=== PATIENT | female | born 1980 | race American Indian/Alaskan Native ===

== ENCOUNTER 2019-03-27 07:40 | Day surgery (SDC) | payer BC, MEDICAID ==
[~2019-03-27 07:40] MED LIST: BUPIVACAINE-EPINEPHRINE/PF 0.5%-1:200,000 (30 ML) VIAL INFILTRATI ONE
[2019-03-27] MEDS ORDERED: LACTATED RINGERS 1,000 ML IV SCH (08:02)
[2019-03-27] MEDS ORDERED: LACTATED RINGERS 1,000 ML ONE (08:06)
[2019-03-27] MEDS ORDERED: HYDROmorphone 1 MG/1 ML INJ IV PRN (08:07)
[2019-03-27] MEDS ORDERED: fentaNYL 100 MCG/2 ML INJ IV PRN (08:07)
[2019-03-27] MEDS ORDERED: ONDANSETRON 4 MG/2 ML INJ IV PRN (08:07)
--- NOTE | 2019-03-27 08:07 | Anesthesia Day of Surgery ---
Anesthesia Day of Surgery - Day of Surgery Patient Examined: Yes Patient H&P Reviewed: Yes Patient is NPO: Yes
--- NOTE | 2019-03-27 08:12 | Anesthesia Consultation ---
Anesthesia Consult and Med Hx Date of service: 03/27/19 - Airway Anesthetic Teeth Evaluation: Chipped ROM Head & Neck: Inadequate (Decreased extension) Mental/Hyoid Distance: Adequate Mallampati Class: Class III Intubation Access Assessment: Possibly Difficult - Pre-Operative Health Status ASA Pre-Surgery Classification: ASA3 Proposed Anesthetic Plan: General - Pulmonary Hx Smoking: No Hx Sleep Apnea: Yes (TESTED VERY MILD) - Cardiovascular System Hx Hypertension: Yes Hx Heart Attack/AMI: No - Central Nervous System Hx Neuromuscular Disorder: Yes (Migraines) Hx Seizures: No Hx Psychiatric Problems: Yes (Major Depressive Disorder) - Endocrine Hx Hypothyroidism: No - Hematic Hx Anemia: Yes Hx Sickle Cell Disease: No - Other Systems Hx Alcohol Use: Yes (OCC.) Hx Substance Use: No Hx Cancer: No
[2019-03-27] MEDS ORDERED: ACETAMINOPHEN 325 MG TAB PO NR (08:14)
[2019-03-27] MEDS ORDERED: GABAPENTIN 300 MG CAP ONE (08:37)
[2019-03-27] MEDS ORDERED: CELECOXIB 200 MG CAP PO NR (09:00)
[2019-03-27] MEDS ORDERED: GABAPENTIN 300 MG CAP PO NR (09:00)
[2019-03-27] MEDS ORDERED: MIDAZOLAM 2 MG/2 ML INJ IV NR (09:00)
[2019-03-27] MEDS ORDERED: BUPIVACAINE-EPINEPHRINE/PF 0.5%-1:200,000 (30 ML) VIAL INFILTRATI ONE ×2 (09:02→10:15)
[2019-03-27] MEDS ORDERED: ROCURONIUM 50 MG/5 ML INJ IV ONE (09:11)
[2019-03-27] MEDS ORDERED: HYDROmorphone 1 MG/1 ML INJ ONE (09:11)
[2019-03-27] MEDS ORDERED: LIDOCAINE MPF (2%) 20 MG/1 ML VIAL 5 ML ONE (09:11)
[2019-03-27] MEDS ORDERED: PROPOFOL 200 MG/20 ML VIAL IV ONE (09:11)
[2019-03-27] MEDS ORDERED: GLYCOPYRROLATE 0.4 MG/2 ML INJ ONE (10:29)
[2019-03-27] MEDS ORDERED: ONDANSETRON 4 MG/2 ML INJ ONE (10:29)
[2019-03-27] MEDS ORDERED: NEOSTIGMINE 10MG/10 ML INJ MDV ONE (10:29)
--- NOTE | 2019-03-27 10:30 | Discharge Summary ---
Short Stay Discharge Plan Activity: up only with assistance, other (observe x 4 hrs then october d/c if stable. sips of cl liq today. advance to solid diet at home in am as miryam. keep dressings dry x 5 days. no lifting over 5 lbs x 1 wk) Diet: other Wound: keep clean and dry Additional Instructions: aleve I po q 6-8 hrs prn for breakthrough pain Follow up with: LAILA VILLELA MD [Staff Physician] - 04/02/19
--- NOTE | 2019-03-27 11:06 | Operative Report ---
PREOPERATIVE DIAGNOSES: 1. Lower abdominal pain, status post multiple surgeries, rule out adhesions. 2. Rule out incisional/ventral hernia. PROCEDURES: 1. Diagnostic laparoscopy. 2. Lysis of extensive and thickened omental adhesions. SURGEON: Valente Martin MD PORTABLE TRACK LINE MARKER: Dr. Betancourt. ANESTHESIA: General. ESTIMATED BLOOD LOSS: Minimal. DRAINS: None. COMPLICATIONS: None. DESCRIPTION OF PROCEDURE: The patient was taken to the operating room, prepped and draped in usual sterile fashion. Veress needle was inserted and CO2 insufflation begun. A 5 mm trocar was then inserted and camera inserted. Inspection of the abdomen revealed thickened omental adhesions inferior to the umbilicus and the area of the patient's abdominal pain. Fortunately, no incisional or ventral hernias were noted. There is a small area of rectus diastasis, which was not tender on physical exam and thus we had discussed with the patient that if only rectal diastasis was noted, we would not make an open incision and repair for that which she agreed. Two lateral 5 mm ports were then inserted. The Harmonic scalpel was then used to slowly lysed and free up all the thickened omental adhesions that were adhered to the undersurface of the peritoneum. A pre and post-adhesion lysis pictures were taken. The omentum was then carefully inspected for any oozing or bleeding, none was noted. Once again, the abdominal wall was inspected and no hernias seen. No other gross pathology noted. The lateral 5 mm ports were then removed under direct visualization. No bleeding or oozing seen. The final 5 mm port was used to expel the CO2 and the trocar removed. The skin at all port sites was closed with subcuticular 4-0 Vicryl. A 0.5% Marcaine was infiltrated over the areas for postoperative pain relief. The patient tolerated the procedure well and left the OR in stable condition. JOB# [id number] SPARKLE/TED
[2019-03-27 11:39] VITALS: BP 120/71
--- NOTE | 2019-03-27 13:58 | Post Anesthesia Evaluation ---
- Post Anesthesia Evaluation Patient Participated: Yes Airway Patent: Yes Stable Respiratory Function: Yes Nausea/Vomiting: No Temp > 96.8F: Yes Pain Manageable: Yes Adequeate Hydration: Yes Anesthesia Complications: No
== END 2019-03-27 07:41 | disposition home or self-care (01) ==
LOC: OR 07:40
PROVIDERS: ATTEND Surgery
DX: R10.30 Lower abdominal pain, unspecified (principal); G43.909 Migraine, unspecified, not intractable, without status migrainosus; I10 Essential (primary) hypertension; G47.30 Sleep apnea, unspecified; M19.90 Unspecified osteoarthritis, unspecified site; F41.9 Anxiety disorder, unspecified; F32.9 Major depressive disorder, single episode, unspecified; Z72.89 Other problems related to lifestyle; Z98.890 Other specified postprocedural states; Z79.899 Other long term (current) drug therapy; Z96.643 Presence of artificial hip joint, bilateral; Z98.891 History of uterine scar from previous surgery; Z86.2 Personal history of diseases of the blood and blood-forming organs and certain disorders involving the immune mechanism
CPT/HCPCS: 49320; 81025; J1170; J2405; J2704; J2710; J7120

== ENCOUNTER 2019-04-13 07:32 | Inpatient (IN) | payer BC, MEDICAID ==
[2019-04-13] MEDS ORDERED: ONDANSETRON 4 MG/2 ML INJ IV PRN ×2 (08:09→11:17)
[2019-04-13] MEDS ORDERED: fentaNYL 100 MCG/2 ML INJ IV PRN (08:09)
[2019-04-13] MEDS ORDERED: ACETAMINOPHEN 500 MG TAB PO NR (08:10)
[2019-04-13] MEDS ORDERED: MORPHINE 2 MG/1 ML INJ IV NR (08:10)
--- NOTE | 2019-04-13 08:11 | Anesthesia Day of Surgery ---
Anesthesia Day of Surgery - Day of Surgery Patient Examined: Yes Patient H&P Reviewed: Yes Patient is NPO: Yes
[2019-04-13] MEDS ORDERED: BACTERIOSTATIC SODIUM CHLORIDE 0.9% 30 ML VIAL INFILTRATI ONE (08:15)
--- NOTE | 2019-04-13 08:15 | Anesthesia Consultation ---
Anesthesia Consult and Med Hx Date of service: 04/13/19 - Airway Anesthetic Teeth Evaluation: Chipped ROM Head & Neck: Adequate Mental/Hyoid Distance: Adequate Mallampati Class: Class II Intubation Access Assessment: Probably Good - Pre-Operative Health Status ASA Pre-Surgery Classification: ASA3 Proposed Anesthetic Plan: General - Pulmonary Hx Smoking: No Hx Sleep Apnea: Yes (TESTED VERY MILD) - Cardiovascular System Hx Hypertension: Yes (SINCE 2006) Hx Heart Attack/AMI: No - Central Nervous System Hx Neuromuscular Disorder: Yes (Migraines) Hx Seizures: No Hx Back Pain: Yes (NECK AND TOTAL BACK) Hx Psychiatric Problems: Yes - Endocrine Hx Hypothyroidism: No - Hematic Hx Anemia: Yes (LAST HGB 11.4 (03/15/19)) - Other Systems Hx Alcohol Use: Yes (OCC.) Hx Substance Use: No Hx Cancer: No Hx Obesity: Yes - Additional Comments Anesthesia Medical History Comments: Was here two weeks ago and the propofol burned a lot
[2019-04-13] MEDS ORDERED: LIDOCAINE MPF (2%) 20 MG/1 ML VIAL 5 ML ONE (08:35)
[2019-04-13] MEDS ORDERED: PROPOFOL 200 MG/20 ML VIAL IV ONE (08:35)
[2019-04-13] MEDS ORDERED: fentaNYL 100 MCG/2 ML INJ ONE (08:35)
[2019-04-13] MEDS ORDERED: ROCURONIUM 50 MG/5 ML INJ IV ONE ×2 (08:35→10:44)
[2019-04-13] MEDS: MIDAZOLAM 2 MG/2 ML INJ IV NR ×2 (08:45→09:24)
[2019-04-13] MEDS ORDERED: GLYCOPYRROLATE 0.4 MG/2 ML INJ ONE ×2 (08:57→11:01)
[2019-04-13] MEDS ORDERED: NEOSTIGMINE 10MG/10 ML INJ MDV ONE ×2 (08:57→11:01)
[2019-04-13] MEDS ORDERED: LACTATED RINGERS 1,000 ML IV SCH (09:00)
[2019-04-13] MEDS ORDERED: CELECOXIB 200 MG CAP PO NR (09:00)
[2019-04-13] MEDS ORDERED: GABAPENTIN 300 MG CAP PO NR (09:00)
[2019-04-13] MEDS ORDERED: ceFAZolin/STERILE WATER 2 GM/20 ML SYRINGE IV NR (09:00)
[2019-04-13] MEDS: VERAPAMIL ER 120 MG TAB PO SCH ×2 (09:20→22:13)
[2019-04-13] MEDS ORDERED: BUPIVACAINE/PF (0.5%) 5 MG/1 ML 30 ML VIAL INFILTRATI ONE (09:46)
[2019-04-13] MEDS ORDERED: BUPIVACAINE-EPINEPHRINE/PF 0.5%-1:200,000 (30 ML) VIAL INFILTRATI ONE ×2 (09:46→10:47)
[2019-04-13] MEDS ORDERED: dexAMETHasone 20 MG/5 ML VIAL ONE (10:19)
[2019-04-13] MEDS ORDERED: KETOROLAC 30 MG/1 ML INJ ONE (10:19)
[2019-04-13] MEDS ORDERED: ONDANSETRON 4 MG/2 ML INJ ONE (10:20)
[2019-04-13] MEDS ORDERED: SODIUM CHLORIDE 0.9% IRR 1,500 ML BOTTLE IR ONE (10:48)
[2019-04-13] MEDS ORDERED: HYDROmorphone 1 MG/1 ML INJ ONE (11:07)
[2019-04-13] MEDS ORDERED: MORPHINE 4 MG/1 ML INJ IV PRN (11:17)
--- NOTE | 2019-04-13 11:32 | Operative Report ---
PREOPERATIVE DIAGNOSES: 1. Rule out recurrent intra-abdominal adhesions. 2. Ventral hernia/rectus diastasis. PROCEDURE: 1. Diagnostic laparoscopy. 2. Open ventral hernia repair. SURGEON: Valente Martin MD ANESTHESIA: General. ESTIMATED BLOOD LOSS: Minimal. DRAINS: None. COMPLICATIONS: None. DESCRIPTION OF PROCEDURE: The patient was taken to the operating room, prepped and draped in usual sterile fashion. Veress needle was inserted and CO2 insufflation begun. A 5 mm trocar was then inserted and camera inserted. Inspection of the abdomen revealed no recurrent intra-abdominal adhesions. The site of previous adhesiolysis was confirmed and that area as well as all the surrounding area revealed no further adhesions. At this point, procedure was converted to an open exploratory lap for a ventral hernia repair. Midline incision was made. The area of diastasis and tenderness had been previously outlined with a marking pencil from superior to this most inferior point approximately 2-3 cm below the umbilicus. A 10 blade was used to incise the skin and subcutaneous. Upon entrance into the fascia, the separation of the rectus muscle was indeed confirmed. There was an area of slight drainage around the umbilicus, which the patient had previously reported. Because of this, it was decided that will not be prudent to place a mesh at this time. Repair was then done as a primary repair, doing a wide suturing approximately 2-3 cm from the fascial margins and making sure to include muscle. The repair was performed with nonabsorbable #1 Nurolon. The area was then irrigated copiously and dried. Checked for hemostasis and noted to be dry. The skin was then closed with terrie. Fluffs and pressure dressings were applied. Abdominal binder will also be placed. The patient tolerated the procedure well and left the OR in stable condition. JOB# [id number] FP/NTS
--- NOTE | 2019-04-13 12:23 | Post Anesthesia Evaluation ---
- Post Anesthesia Evaluation Patient Participated: Yes Airway Patent: Yes Stable Respiratory Function: Yes Nausea/Vomiting: No Temp > 96.8F: Yes Pain Manageable: Yes Adequeate Hydration: Yes Anesthesia Complications: No Block Receding Appropriately: Not Applicable Patient on Ventilator: No
[2019-04-13] MEDS: D5W/0.45% NACL/KCL 20 MEQ 20 MEQ/1,000 ML BAG IV SCH ×2 (13:35→22:26)
[2019-04-13] MEDS ORDERED: HYDROmorphone 1 MG/1 ML INJ IV PRN (21:27)
[2019-04-14 06:24] LABS: Basophils % (Auto) 0.3 % (0.0-1.8); Eosinophils # (Auto) 0.1 K/mm3 (0.0-0.4); Eosinophils % (Auto) 0.9 % (0.0-4.3); Hematocrit 36.6 % (30.3-42.9); Hemoglobin 11.8 gm/dl (10.1-14.3); Lymphocytes % (Auto) 7.7 % (13.4-35.0); Mean Corpuscular HGB Conc 32 % (30-34); Mean Corpuscular Volume 84 fl (79-97); Monocytes # (Auto) 0.5 K/mm3 (0.0-0.8); Monocytes % (Auto) 4.2 % (0.0-7.3); Platelet Count 195 K/mm3 (140-440); Red Blood Count 4.37 M/mm3 (3.65-5.03); Red Cell Distribution Width 14.3 % (13.2-15.2)
--- NOTE | 2019-04-14 10:33 | Progress Note ---
Assessment and Plan POD # 1 Pt feeling well. c/o incisional pain. +flatus Abd soft, dressings dry. hypoactive BS stable cl liq diet ambulation supplement pain management with po narcotics Selected Entries 04/14/19 08:44 Temperature 98.3 F Pulse Rate 82 Respiratory 20 Rate Blood Pressure 152/93 [Right] Laboratory Tests 04/14/19 05:33 WBC 12.9 H Hgb 11.8 Hct 36.6 Objective Vital Signs - 12hr 04/14/19 04/14/19 04/14/19 00:32 01:00 05:04 Temperature 98.2 F 98.3 F Pulse Rate 70 71 Respiratory 20 18 20 Rate Blood Pressure 154/93 123/73 Blood Pressure [Right] O2 Sat by Pulse 96 100 Oximetry 04/14/19 04/14/19 07:56 08:44 Temperature 98.3 F 98.3 F Pulse Rate 68 82 Respiratory 20 20 Rate Blood Pressure 152/93 Blood Pressure 152/93 [Right] O2 Sat by Pulse 100 99 Oximetry - Labs 04/14/19 05:33
[2019-04-14] MEDS: HYDROcodone/ACETAMINOPHEN 5-325 MG TAB PO PRN ×3 (11:05→21:20)
[2019-04-14] MEDS: VERAPAMIL ER 120 MG TAB PO SCH ×2 (11:08→21:20)
[2019-04-14] MEDS ORDERED: FLU VACC QUAD 2019-20 (3 YR UP)/PF 60 MCG/0.5 ML SYRINGE IM ONE (12:00)
[2019-04-14] MEDS: D5W/0.45% NACL/KCL 20 MEQ 20 MEQ/1,000 ML BAG IV SCH (15:40)
[2019-04-15] MEDS: D5W/0.45% NACL/KCL 20 MEQ 20 MEQ/1,000 ML BAG IV SCH (00:10)
[2019-04-15] MEDS: HYDROcodone/ACETAMINOPHEN 5-325 MG TAB PO PRN ×3 (05:44→19:49)
[2019-04-15] MEDS: VERAPAMIL ER 120 MG TAB PO SCH ×2 (10:08→21:00)
--- NOTE | 2019-04-15 10:35 | Progress Note ---
Assessment and Plan POD # 2 Pt c/o incisional pain. mod miryam cl liq diet. + flatus Abd soft, dressings dry. + BS uncontrolled HTN stable advance to full liq hospitalist eval for HTN Selected Entries 04/14/19 04/15/19 04/15/19 08:44 05:14 07:21 Temperature 98.3 F 97.8 F Pulse Rate 82 Respiratory 20 Rate Blood Pressure 167/86 168/86 Blood Pressure 152/93 [Right] 04/15/19 10:08 Temperature Pulse Rate 66 Respiratory Rate Blood Pressure 168/86 Blood Pressure [Right] Laboratory Tests 04/14/19 05:33 WBC 12.9 H Hgb 11.8 Hct 36.6 Objective Vital Signs - 12hr 04/14/19 04/15/19 04/15/19 23:43 05:14 07:21 Temperature 98.0 F 98.7 F 97.8 F Pulse Rate 67 58 L 66 Respiratory 19 18 18 Rate Blood Pressure 136/73 167/86 168/86 O2 Sat by Pulse 97 95 99 Oximetry 04/15/19 10:08 Temperature Pulse Rate 66 Respiratory Rate Blood Pressure 168/86 O2 Sat by Pulse Oximetry - Labs 04/14/19 05:33
[2019-04-15] MEDS ORDERED: hydrALAZINE 20 MG/1 ML INJ IV ONE (12:13)
[2019-04-16] MEDS: HYDROcodone/ACETAMINOPHEN 5-325 MG TAB PO PRN ×2 (05:01→14:28)
[2019-04-16] MEDS ORDERED: RIZATRIPTAN BENZOATE 10 MG PO PRN (06:24)
--- NOTE | 2019-04-16 06:24 | Consultation ---
History of Present Illness - Reason for Consult Consult date: 04/15/19 Management of HTN Requesting physician: LAILA VILLELA - History of Present Illness S/p ventral hernia repair.Post op doing well.Tolerating clears.pain 6 /10 in the incision site.Asked to manage BP .Not a known Hypertensive.BP running high post op sec to pain. Past History Past Medical History: No medical history Medications and Allergies Allergies Allergy/AdvReac Type Severity Reaction Status Date / Time No Known Allergies Allergy Verified 04/12/19 10:20 Home Medications Medication Instructions Recorded Confirmed Last Taken Type Lisinopril/Hydrochlorothiazide 1 tab PO QDAY 03/26/19 04/12/19 04/12/19 History [Zestoretic 20-25 mg] Rizatriptan Benzoate [Maxalt] 10 mg PO PRN PRN 03/26/19 04/12/19 04/12/19 History Verapamil HCl [Calan Sr] 120 mg PO DAILY 03/26/19 04/13/19 04/13/19 09:20 History buPROPion XL [Wellbutrin XL] 150 mg PO QAM 03/26/19 04/12/19 04/12/19 History traZODone [Desyrel] 100 mg PO QHS 03/26/19 04/12/19 04/12/19 History HYDROcodone/APAP 5-325 [Harrison 1 - 2 each PO Q4HR PRN #30 tablet 03/27/19 04/12/19 04/12/19 Rx 5/325] Etonogestrel [Nexplanon] 68 mg SQ UNK 04/12/19 04/12/19 04/12/19 History Active Meds: Active Medications Acetaminophen/Hydrocodone Bitart (Harrison 5/325) 1 each PO Q4H PRN PRN Reason: Pain, Moderate (4-6) Last Admin: 04/16/19 05:01 Dose: 1 each Documented by: Hydromorphone HCl (Dilaudid) 0.5 mg IV Q3H PRN PRN Reason: Pain , Severe (7-10) Last Admin: 04/13/19 22:14 Dose: 0.5 mg Documented by: Lactated Ringer's (Lactated Ringers) 1,000 mls @ 125 mls/hr IV DIRECT COLTON Last Admin: 04/13/19 08:40 Dose: 125 mls/hr Documented by: Potassium Chloride/Dextrose/Sod Cl (D5w/0.45% Nacl/Kcl 20 Meq) 20 meq in 1,000 mls @ 125 mls/hr IV DIRECT COLTON Last Admin: 04/15/19 00:10 Dose: 125 mls/hr Documented by: Ondansetron HCl (Zofran) 4 mg IV Q4H PRN PRN Reason: N/V unrelieved by Reglan Last Admin: 04/13/19 17:54 Dose: 4 mg Documented by: Verapamil HCl (Calan Sr) 120 mg PO Q12HR COLTON Last Admin: 04/15/19 21:00 Dose: 120 mg Documented by: Exam - Constitutional Vitals: Temp Pulse Resp BP Pulse Ox 97.9 F 81 18 128/84 100 04/16/19 04:55 04/16/19 04:55 04/16/19 05:01 04/16/19 04:55 04/16/19 04:55 Results - Labs CBC & Chem 7: 04/14/19 05:33 Assessment and Plan - Patient Problems (1) HTN (hypertension) Current Visit: Yes Status: Chronic Qualifiers: Hypertension type: essential hypertension Qualified Code(s): I10 - Essential (primary) hypertension Plan to address problem: COnt Verapamil and Lisinopril IV Hydralazine 5 mg q3 prn for BPmore than 160 /100 (2) Depression Current Visit: Yes Status: Chronic Qualifiers: Depression Type: unspecified Qualified Code(s): F32.9 - Major depressive disorder, single episode, unspecified Plan to address problem: COnt Trazodone and Wellbutrin (3) Migraine Current Visit: Yes Status: Inactive Qualifiers: Migraine type: unspecified Plan to address problem: Maxalt prn wh\en the Headache recurs (4) DVT prophylaxis Current Visit: Yes Status: Acute Plan to address problem: On sds's and GI prophylaxis
--- NOTE | 2019-04-16 08:04 | Progress Note ---
Assessment and Plan Assessment and plan: (1) HTN (hypertension) Current Visit: Yes Status: Chronic COnt Verapamil and Lisinopril IV Hydralazine 5 mg q3 prn for BPmore than 160 /100 (2) Depression Current Visit: Yes Status: Chronic COnt Trazodone and Wellbutrin (3) Migraine Current Visit: Yes Status: Inactive Maxalt prn wh\en the Headache recurs (4) DVT prophylaxis Current Visit: Yes Status: Acute On sds's and GI prophylaxis (5)Morbid obesity:BMI 39.1 Current Visit: Yes Status: Acute Closely monitor and adjust management as needed Medically stable for discharge History Interval history: Patient seen and examined medical records reviewed Patient feels better no new complaints Vital signs noted Hospitalist Physical - Constitutional Vitals: Temp Pulse Resp BP Pulse Ox 97.9 F 81 18 128/84 100 04/16/19 04:55 04/16/19 04:55 04/16/19 05:01 04/16/19 04:55 04/16/19 04:55 General appearance: Present: no acute distress, well-nourished - EENT Eyes: Present: PERRL, EOM intact - Neck Neck: Present: supple, normal ROM - Respiratory Respiratory effort: normal Respiratory: negative: diminished, rales, rhonchi, wheezing - Cardiovascular Rhythm: regular Heart Sounds: Present: S1 & S2 - Extremities Extremities: no ischemia, No edema - Abdominal General gastrointestinal: soft, non-tender, non-distended, normal bowel sounds, other (dressing in place) - Integumentary Integumentary: Present: clear, warm - Psychiatric Psychiatric: appropriate mood/affect, cooperative - Neurologic Neurologic: CNII-XII intact, moves all extremities Results - Labs CBC & Chem 7: 04/14/19 05:33 Labs: Laboratory Last Values WBC 12.9 K/mm3 (4.5-11.0) H 04/14/19 05:33 RBC 4.37 M/mm3 (3.65-5.03) 04/14/19 05:33 Hgb 11.8 gm/dl (10.1-14.3) 04/14/19 05:33 Hct 36.6 % (30.3-42.9) 04/14/19 05:33 MCV 84 fl (79-97) 04/14/19 05:33 MCH 27 pg (28-32) L 04/14/19 05:33 MCHC 32 % (30-34) 04/14/19 05:33 RDW 14.3 % (13.2-15.2) 04/14/19 05:33 Plt Count 195 K/mm3 (140-440) 04/14/19 05:33 Lymph % (Auto) 7.7 % (13.4-35.0) L 04/14/19 05:33 Gray % (Auto) 4.2 % (0.0-7.3) 04/14/19 05:33 Eos % (Auto) 0.9 % (0.0-4.3) 04/14/19 05:33 Baso % (Auto) 0.3 % (0.0-1.8) 04/14/19 05:33 Lymph # 1.0 K/mm3 (1.2-5.4) L 04/14/19 05:33 Gray # 0.5 K/mm3 (0.0-0.8) 04/14/19 05:33 Eos # 0.1 K/mm3 (0.0-0.4) 04/14/19 05:33 Baso # 0.0 K/mm3 (0.0-0.1) 04/14/19 05:33 Seg Neutrophils % 86.9 % (40.0-70.0) H 04/14/19 05:33 Seg Neutrophils # 11.2 K/mm3 (1.8-7.7) H 04/14/19 05:33 Active Medications - Current Medications Current Medications: Generic Name Dose Route Start Last Admin Trade Name Freq PRN Reason Stop Dose Admin Acetaminophen/Hydrocodone Bitart 1 each 04/14/19 10:33 04/16/19 05:01 [place] 5/325 PO 1 each Q4H PRN Administration Pain, Moderate (4-6) Bupropion HCl 150 mg 04/16/19 10:00 Wellbutrin Xl PO QAM COLTON Hydrochlorothiazide 25 mg 04/16/19 10:00 Hctz PO QDAY COLTON Hydromorphone HCl 0.5 mg 04/13/19 21:27 04/13/19 22:14 Dilaudid IV 0.5 mg Q3H PRN Administration Pain , Severe (7-10) Lactated Ringer's 1,000 mls @ 125 mls/hr 04/13/19 09:00 04/13/19 08:40 Lactated Ringers IV 125 mls/hr DIRECT COLTON Administration Potassium Chloride/Dextrose/Sod Cl 20 meq in 1,000 mls @ 125 mls/hr 04/13/19 12:00 04/15/19 00:10 D5w/0.45% Nacl/Kcl 20 Meq IV 125 mls/hr DIRECT COLTON Administration Lisinopril 20 mg 04/16/19 10:00 Zestril PO QDAY COLTON Miscellaneous Medication 10 mg 04/16/19 06:24 Rizatriptan Benzoate [Maxalt] PO PRN PRN MIGRAINES Ondansetron HCl 4 mg 04/13/19 11:17 04/13/19 17:54 Zofran IV 4 mg Q4H PRN Administration N/V unrelieved by Charles Trazodone HCl 100 mg 04/16/19 22:00 Desyrel PO QHS COLTON Verapamil HCl 120 mg 04/16/19 10:00 Calan Sr PO DAILY COLTON
[2019-04-16] MEDS ORDERED: hydroCHLOROthiazide 25 MG TAB PO SCH (10:00)
[2019-04-16] MEDS ORDERED: HYDROCHLOROTHIAZIDE PO SCH (10:00)
[2019-04-16] MEDS ORDERED: VERAPAMIL ER 120 MG TAB PO SCH (10:00)
[2019-04-16] MEDS ORDERED: LISINOPRIL 20 MG TAB PO SCH (10:00)
[2019-04-16] MEDS ORDERED: buPROPion XL 150 MG TAB PO SCH (10:00)
[2019-04-16] MEDS ORDERED: LISINOPRIL PO SCH (10:00)
[2019-04-16 12:09] VITALS: BP 136/79
--- NOTE | 2019-04-16 13:34 | Progress Note ---
Assessment and Plan POD # 3 Pt feeling well. miryam diet. ambulating down halls Abd soft, non tender. dressings dry surgically stable. d/c today rto this Fri Objective Vital Signs - 12hr 04/16/19 04/16/19 04/16/19 04:55 05:01 07:44 Temperature 97.9 F 97.6 F Pulse Rate 81 72 Respiratory 18 18 18 Rate Blood Pressure 138/82 Blood Pressure 128/84 [Right] O2 Sat by Pulse 100 98 Oximetry 04/16/19 11:28 Temperature 97.2 F L Pulse Rate 63 Respiratory 18 Rate Blood Pressure 136/79 Blood Pressure [Right] O2 Sat by Pulse 97 Oximetry - Labs 04/14/19 05:33
--- NOTE | 2019-04-16 13:37 | Discharge Summary ---
Providers - Providers Date of Admission: 04/13/19 11:17 Attending physician: LAILA VILLELA 04/15/19 10:22 Consult to Physician [CONS] Routine Comment: Consulting Provider: NICOLE ANDRE Physician Instructions: Reason For Exam: HTN Primary care physician: TERI MALONE Hospitalization Condition: Good Disposition: DC-01 TO HOME OR SELFCARE Core Measure Documentation - Palliative Care Palliative Care/ Comfort Measures: Not Applicable - Core Measures Any of the following diagnoses?: none Exam - Constitutional Vitals: Temp Pulse Resp BP Pulse Ox 97.2 F L 63 18 136/79 97 04/16/19 11:28 04/16/19 11:28 04/16/19 11:28 04/16/19 11:28 04/16/19 11:28 Plan Activity: other (d/c today. no lifting. abd binder x 3 weeks) Diet: regular Wound: keep clean and dry Additional Instructions: surfak I q am x 3. aleve I po q 6-8 hrs prn for breakthrough pain Follow up with: LAILA VILLELA MD [Staff Physician] - 04/20/19
--- NOTE | 2019-04-16 13:46 | Discharge Summary ---
DISCHARGE DIAGNOSIS: Symptomatic ventral hernia. PROCEDURE WHILE IN HOSPITAL: Open ventral hernia repair. HOSPITAL COURSE: The patient is a pleasant 38-year-old female who was complaining of abdominal pain and tenderness over a palpable ventral hernia. At this time, the patient was admitted for open ventral hernia repair, which she underwent without incident. Her postoperative course has been essentially unremarkable. She had an ileus for approximately close to 48 hours postop. Subsequent to this, she was started on clear liquid diet and has since been advanced to regular diet, which she is tolerating without incident. Currently, the patient is postoperative day #3, afebrile and feeling well. She is tolerating a regular diet, ambulating down the halls and has no complaints. Her abdomen is soft and nontender. Bowel sounds are present. Dressings are clean and dry. At this time, the patient is being discharged with instructions to keep her incision dry for another 3 days and to keep her abdominal binder for 3 weeks. Absolutely no lifting or straining. The patient will be followed up in the office this Tuesday. JOB# [id number] SPARKLE/NTS
[2019-04-16] MEDS ORDERED: traZODone 100 MG TAB PO SCH (22:00)
== END 2019-04-16 15:45 | disposition home or self-care (01) | DRG 355 ==
LOC: OR 07:32 → 3B-SURG 11:17
PROVIDERS: ADMIT Surgery; ATTEND Surgery
PROC: 0WQF0ZZ Repair Abdominal Wall, Open Approach (ICD-10-PCS; principal; 2019-04-13)
PROC: 0WJG4ZZ Inspection of Peritoneal Cavity, Percutaneous Endoscopic Approach (ICD-10-PCS; 2019-04-13)
DX: K43.9 Ventral hernia without obstruction or gangrene (principal); I10 Essential (primary) hypertension; F32.9 Major depressive disorder, single episode, unspecified; G47.30 Sleep apnea, unspecified; G43.909 Migraine, unspecified, not intractable, without status migrainosus; E66.01 Morbid (severe) obesity due to excess calories; Z68.39 Body mass index [BMI] 39.0-39.9, adult; Z53.31 Laparoscopic surgical procedure converted to open procedure
CPT/HCPCS: 36415; 81025; 85025; 90686; G0378; J0360; J0690; J1100; J1170; J1885; J2250; J2270; J2405; J2704; J2710; J3010; J7120